=== PATIENT | female | born 1980 | race Two or more races ===

== ENCOUNTER 2020-03-23 19:57 | Emergency (ER) | payer OTHER ==
[~2020-03-23] VITALS: Ht 167.6 cm; Wt 77.1 kg
[~2020-03-23 19:57] MED LIST: LEVOTHYROXINE PO; PHEN100C70
[2020-03-23 20:13] VITALS: BP 132/80
== END 2020-03-23 20:17 | disposition left against medical advice (07) ==
LOC: ER 19:57
DX: R56.9 Unspecified convulsions (principal); Z53.21 Procedure and treatment not carried out due to patient leaving prior to being seen by health care provider